=== PATIENT | male | born 1980 | race Two or more races ===

== ENCOUNTER 2017-10-04 09:20 | Emergency (ER) | payer OTHER ==
[~2017-10-04] VITALS: Ht 180.3 cm; Wt 81.2 kg
[2017-10-04] MEDS ORDERED: ISENTRESS400 MG (09:31)
[2017-10-04] MEDS ORDERED: DESCOVY 200-251 EACH (09:31)
[2017-10-04] MEDS ORDERED: CIPRO500 MG PO (11:44)
[2017-10-04] MEDS ORDERED: INTESTINEX680 M1 PO (11:44)
[2017-10-04] MEDS ORDERED: FLAGYL500MG PO (11:44)
[2017-10-04] MEDS ORDERED: ZANTAC150 MG PO (11:46)
== END 2017-10-04 14:40 | disposition home or self-care (01) ==
LOC: ER 09:20
DX: K52.9 Noninfective gastroenteritis and colitis, unspecified (principal)